=== PATIENT | female | born 1965 | race African-American/Black ===

== ENCOUNTER 2018-11-19 12:59 | Inpatient (IN) | payer MEDICARE, MEDICAID ==
--- NOTE | 2018-11-19 13:15 | ED Physician Chart ---
ED Chief Complaint/HPI - Patient Information Date Seen:: 11/19/18 Time Seen:: 13:00 Chief Complaint:: Agitation History of Present Illness:: onset x 3 days of agitation and hostile behavior; no report of trauma, H/As, neck pain, C/P, cough, SOB, Abd. Pain, SIs, or urinary s/s Allergies:: Allergies Allergy/AdvReac Type Severity Reaction Status Date / Time Penicillins [PCN] Allergy Verified 11/19/18 13:07 Historian:: Patient, EMS Review:: Nurse's Note Reviewed, Old Chart Reviewed, EMS run form Reviewed ED Review of Systems - Review of Systems General/Constitutional: No fever, No chills, No weight loss, No weakness, No diaphoresis, No edema, No loss of appetite Skin: No skin lesions, No rash, No bruising Head: No headache, No light-headedness Eyes: No loss of vision, No pain, No diplopia ENT: No earache, No nasal drainage, No sore throat, No tinnitus Neck: No neck pain, No swelling, No thyromegaly, No stiffness, No mass noted Cardio Vascular: No chest pain, No palpitations, No PND, No orthopnea, No edema Pulmonary: No SOB, No cough, No sputum, No wheezing GI: No nausea, No vomiting, No diarrhea, No pain, No melena, No hematochezia, No constipation, No hematemesis G/U: No dysuria, No frequency, No hematuria, No nacturia Parts Washer: No vaginal discharge, No abnormal vaginal bleed, No contraction Musculoskeletal: No bone or joint pain, No back pain, No muscle pain Endocrine: No polyuria, No polydipsia Psychiatric: No prior psych history, No depression, No anxiety, No suicidal ideation, No homicidal ideation, No auditory hallucination, No visual hallucination Hematopoietic: No bruising, No lymphadenopathy Allergic/Immuno: No urticaria, No angioedema Neurological: No syncope, No focal symptoms, No weakness, No paresthesia, No headache, No seizure, No dizziness, No confusion, No vertigo ED Past Medical History - Past Medical History Obtainable: Yes Past Medical History: HTN, CVA/TIA, PUD/GERD, Dementia, Other (CP) Family History: HTN Social History: Non Smoker, No Alcohol, No Drug Use, Single, Care Facility Surgical History: None Psychiatricy History: Bipolar, Dementia Medication: Reviewed ED Physical Exam - Physical Examination General/Constitutional: Awake, Well-developed, well-nourished, Alert, No distress, GCS 15, Non-toxic appearing, Ambulatory Head: Atraumatic Eyes: Lids, conjuctiva normal, PERRL, EOMI Skin: Nl inspection, No rash, No skin lesions, No ecchymosis, Well hydrated, No lymphadenopathy ENMT: External ears, nose nl, TM canals nl, Nasal exam nl, Lips, teeth, gums nl , Oropharynx nl, Tonsils nl Neck: Nontender, Full ROM w/o pain, No JVD, No nuchal rigidity, No bruit, No mass, No stridor Other Neck comments:: supple; no meningeal signs; no cervical tenderness; no bruits Respiratory: Nl effort/Exclusion, Clear to Auscultation, No Wheeze/Rhonchi/Rales Cardio Vascular: RRR, No murmur, gallop, rubs, NL S1 S2, Carotid/Femoral/Distal pulses equal bilaterally GI: No tenderness/rebounding/guarding, No organomegaly, No hernia, Normal BS's, Nondistended, No mass/bruits, No McBurney tenderness Other GI comments:: no pulsatile masses : No CVA tenderness Extremities: No tenderness or effusion, Full ROM, normal strength in all extremities, No edema, Normal digits & nails Neuro/Psych: Alert/oriented, DTR's symmetric, Normal sensory exam, Normal motor strength, Judgement/insight normal, Mood normal, Normal gait, No focal deficits Other Neuro/Psych comments:: + Psychomotor Agitation; no SIs; Mood/Affect: Labile Misc: Normal back, No paraspinal tenderness ED Labs/Radiology/EKG Results - Lab Results Comments:: Reviewed - EKG Interpretations EKG Time:: 13:28 Rate & Rhythm: 71; NSR Comments:: non-specific st-t changes ED Septic Shock - . Is Septic Shock (SBP<90, OR Lactate>4 mmol\L) present?: No ED Reassessment (Disposition) - Reassessment Reassessment Condition:: Improved - Diagnosis Diagnosis:: Agitation; Medical Clearance; Hypertension; Psychosis; Bipolar Disorder - Aftercare/Follow up Instructions Aftercare/Follow-Up Instructions:: Counseled pt regarding lab results/diagnosis & need follow up, Counseled pt & family regarding lab results/diagnosis & need follow up - Patient Disposition Discharge/Transfer:: Acute Care w/in this hosp Admitted to:: [facility] Condition at Disposition:: Stable, Improved
[2018-11-19 13:54] LABS: ALB/GLOB RATIO 1.5 (1.0-1.8); ALBUMIN 4.1 gm/dL (3.7-5.3); ALKALINE PHOSPHATASE 75 U/L (34-104); ANION GAP 12.3 (7.0-16.0); BILIRUBIN,TOTAL 0.8 mg/dL (0.3-1.0); BUN - UREA NITROGEN 11 mg/dL (7-25); CARBON DIOXIDE 28.3 mEq/L (21.0-31.0); CHLORIDE 105 mEq/L (98-107); CHOLESTEROL 174 mg/dL (<200); CREATININE - SERUM 0.7 mg/dL (0.6-1.2); GFR AFRICAN-AMERICAN > 60.0 ml/min (>90); GFR NON AFRICAN-AMERICAN > 60.0 ml/min; GLUCOSE 132 mg/dL (70-105); HDL -HIGH DENSITY LIPOPROTEIN 39 mg/dL (23-92); POTASSIUM SERUM 3.6 mEq/L (3.5-5.1); SGOT 12 U/L (13-39); SGPT/ALT 13 U/L (7-52); SODIUM SERUM 142 mEq/L (136-145); TOTAL PROTEIN,SERUM 6.8 gm/dL (6.0-8.3); TRIGLYCERIDES 144 mg/dL (<150)
[2018-11-19 13:56] LABS: ACETAMINOPHEN < 10.0 ug/mL (10.0-30.0); SALICYLATES (ASPIRIN) < 25.0 mg/L (30.0-100.0)
[2018-11-19] MEDS ORDERED: NITROGLYCERIN OINT 2% 1 INCH PACKET TP STA (14:10)
[2018-11-19 14:45] LABS: WHITE BLOOD COUNT 5.7 Th/cmm (4.8-10.8)
[2018-11-19 14:46] LABS: % EOSINOPHILS 1.8 % (0.0-5.0); % LYMPHOCYTES 40.8 % (20.0-50.0); % MONOCYTES 7.4 % (2.0-10.0); % NEUTROPHILS 49.2 % (40.0-80.0); HEMATOCRIT 43.7 % (41.0-60); HEMOGLOBIN 14.1 gm/dL (12-16); MEAN CELL VOLUME 85.1 fl (81-100); MEAN CORPUSCULAR HEMOGLOBIN 27.5 pg (27.0-31.0); MEAN CORPUSCULAR HGB CONC 32.3 pg (28.0-36.0); MEAN PLATELET VOLUME 8.4 fl; PLATELET COUNT 318 Th/cmm (150-400); RED BLOOD COUNT 5.13 Mil/cmm (3.80-5.10); RED CELL DISTRIBUTION WIDTH 13.5 % (11.5-20.0)
[2018-11-19 14:47] LABS: % BASOPHILS 0.8 % (0.0-2.0); EOSINOPHILE ABSOLUTE 0.1 Th/cmm (0.1-0.4); LYMPHOCYTE ABSOLUTE 2.3 Th/cmm (1.5-3.0); MONOCYTE ABSOLUTE 0.4 Th/cmm (0.3-1.0); NEUTROPHILE ABSOLUTE 2.8 Th/cmm (1.8-8.0)
[2018-11-19] MEDS ORDERED: NITROGLYCERIN OINT 2% 1 INCH PACKET TP ONE (15:25)
[2018-11-19 17:52] VITALS: BP 164/79
--- NOTE | 2018-11-20 05:10 | Psychiatric Evaluation ---
DATE OF SERVICE: 11/19/2018 IDENTIFYING DATA: The patient is a 53-year-old woman, resident of a Nursing Home Facility in [facility]. Information obtained by directly interviewing the patient as well as reviewing the admission papers. JUSTIFICATION OF HOSPITALIZATION: The patient is admitted here on a voluntary basis in view of her acute agitation and refusing to comply with the treatment. Chart is reviewed. The patient is interviewed. Staff was spoken to. The patient has been uncooperative at this time and is not providing much of information stating that she should not be in here. The patient is reported to have been on the Ativan on an as needed basis and is also on clonidine. The patient is reported to have multiple medical problems. The patient has been refusing care at this time and hence the patient has not be contained at a lower level of care and has been referred over here because of her agitation. PAST PSYCHIATRIC HISTORY: Details are not known. Examination is requested to be done by Dr. Bourgeois. The patient is reported to have hypertension, peptic ulcer disease, gastritis, and the patient has cerebral palsy and paraplegia. SUBSTANCE ABUSE HISTORY: None. LEGAL PROBLEMS: None at this time. MENTAL STATUS EXAMINATION: The patient is a 53-year-old, looking his stated age, superficially cooperative. Eye contact is poor. Mood is noted to be irritable. Affect is constricted. Insight and judgment at this time are very much impaired. Impulse control is limited. The patient is very reluctant to give any information at this time. The patient has been having difficult time to cope with the stress. The patient is not answering the questions. Hence I am not able to test the short and long-term memory issues. The patient, however, has been reluctant to comply with any of the treatments on an outpatient basis. The patient has no insight into her illness. DIAGNOSTIC IMPRESSION: AXIS I: Mood disorder, not otherwise specified. AXIS II: None. AXIS III: As per Dr. Bourgeois. IMMEDIATE TREATMENT PLAN: The patient is going to be observed on inpatient unit, provided with supportive psychotherapy. The patient is going to be started on a low dose of Depakote and continue with the Ativan. Once stabilized, the patient is going to be discharged to the Nursing Home Facility for followup. JOB# [id number]
--- NOTE | 2018-11-20 07:28 | History & Physical ---
ADMIT DATE: 11/19/2018 INTERNAL MEDICINE CONSULTATION The patient is a 53-year-old female, patient of mine at [facility]. PAST MEDICAL HISTORY: Significant for hypertension, cerebral palsy, paraplegia, coronary artery disease, peptic ulcer disease, arthritis, osteoporosis. SOCIAL HISTORY: No documented smoking or alcohol abuse. OBSTETRIC HISTORY: P0, plus 0. Menses are postmenopausal. REVIEW OF SYSTEMS: No evidence of any acute infection. PHYSICAL EXAMINATION: Average female, in no obvious respiratory distress. LABORATORY DATA: WBC of 5.7, hemoglobin of 14.1, hematocrit 43.7, platelet count of 318. Sodium 142, potassium 3.6, chloride 105, bicarbonate 28.3, BUN 11, creatinine 0.7, glucose of 132. LFTs unremarkable. MEDICAL DIAGNOSES: As I dictated above cerebral palsy, paraplegia, hypertension, coronary artery disease, peptic ulcer disease, arthritis, osteoporosis. CURRENT MEDICINES: Include clonidine p.r.n., ibuprofen p.r.n. and nitroglycerin p.r.n. JOB# [id number]
[2018-11-20] MEDS ORDERED: OLANZapine 5 mg Oral Disintegrating Tab PO SCH (21:00)
--- NOTE | 2018-11-21 03:21 | Progress Notes ---
DATE: 11/20/2018 SUBJECTIVE: The patient is 53-year-old female with current medical problems that include status post cerebral palsy, paraplegia, hypertension, coronary artery disease, peptic ulcer disease, arthritis. Blood pressure has been unstable. The patient refusing medicines. The patient started on losartan and clonidine p.r.n. PHYSICAL EXAMINATION: LUNGS: Clear. HEART: First and second heart sounds normal. ABDOMEN: Soft, bowel sounds present. EXTREMITIES: Show arthritis. NEUROLOGIC: The patient has cerebral palsy and paraplegia. Psych consult reviewed. PLAN: Continue current medical management. JOB# [id number]
--- NOTE | 2018-11-21 09:15 | Consultation ---
DATE OF CONSULTATION: 11/20/2018 REFERRING PHYSICIAN: Yessy Giordano M.D. TYPE OF CONSULTATION: Psychology. HISTORY OF PRESENT ILLNESS: The patient is a 53-year-old -[place] female. The patient is a resident of [facility]. The following is by record review and by the patient's self-report. The patient is being admitted due to acute agitation as well as refusing to comply with treatment including medications. The patient presents as uncooperative and stating that she does not need to be in the hospital. The staff at her facility reports that the patient has been refusing care and has become easily agitated with staff as well as other residents. The patient did not answer the question about experiencing suicidal ideation, plan or intention. PAST MEDICAL HISTORY: Please see history and physical by Dr. Bourgeois. PAST PSYCHIATRIC HISTORY: Records are unavailable. Details are unknown. The patient is under the care of a psychiatrist at her placement. SUBSTANCE ABUSE HISTORY: The patient declined to answer these questions. PSYCHOSOCIAL HISTORY: The patient did not answer questions about occupational or educational history. The patient states no specific yarsani affiliation. She states she is single with no children and has been disabled for many years. The patient states her cyanide case hardener in [place] is Roxy Chairez and that she has a guardian, named Edith Almendarez; this is verified by record review. The patient did not answer questions about history of physical or sexual abuse. The patient denies any current legal problems. MENTAL STATUS EXAMINATION: The patient appears to be her stated age. Attitude is superficially cooperative. Eye contact is poor. Speech is loud. Mood is irritable. Affect is constricted. The patient is not providing much information. The patient did not answer questions about experiencing suicidal ideation, plan or intention. She did not answer the questions about experiencing auditory or visual hallucinations or delusions. The patient's behavior has been difficult to redirect according to the staff on the unit. Impulse control is inadequate. Concentration is poor. The patient did not answer questions about reasons for becoming reluctant to comply with her treatment. The patient has limited insight into her illness. The patient did not participate in the memory assessment. She did not participate in the interpretation of proverbs. Sensorium is alert and oriented to self and place. Insight is poor. Judgment is compromised. DIAGNOSTIC IMPRESSION: AXIS I: Provisional diagnosis of mood disorder, not otherwise specified. AXIS II: Deferred. AXIS III: Per Dr. Bourgeois. TREATMENT PLAN: The patient has been seen by Dr. Giordano for psychiatric evaluation and for the management of the patient's psychotropic medications. We will provide supportive psychotherapy to include motivational enhancement for the patient to become compliant and stay compliant with all aspects of her care and treatment. We will continue to evaluate the patient more closely to ascertain the type of mood disorder or mood instability that the patient is experiencing. There is possible anxiety involved. We will provide coping strategies for phase of life issues as well as for the appropriate behavior and interaction with staff at her placement. We will encourage the patient to verbalize her concerns so that we may be able to provide a thorough and comprehensive set of treatment goals. Thank you, Dr. Giordano, for this consult and the opportunity to participate in this patient's care. JOB# [id number] TELLO
--- NOTE | 2018-11-21 14:52 | Progress Notes ---
DATE: 11/20/2018 SUBJECTIVE: The patient was seen, remains paranoid, anxious, still delusional, still suspicious. The patient states she is that is why she is not taking her medications. ASSESSMENT: The patient still in psychotic phase. PLAN: Continue supportive measures. Encourage the patient to comply with treatment. The patient is conserved, awaiting detain and treat orders. JOB# [id number]
[2018-11-21] MEDS: OLANZapine 5 mg Oral Disintegrating Tab PO SCH (22:00)
--- NOTE | 2018-11-21 23:08 | Progress Notes ---
DATE: 11/21/2018 INTERNAL MEDICINE CONSULTATION FOLLOWUP SUBJECTIVE: The patient is a 53-year-old female with cerebral palsy and paraplegia. Other medical problems include hypertension, coronary artery disease, peptic ulcer disease, arthritis. No new symptoms. No seizure. No acute infection. OBJECTIVE: VITAL SIGNS: Stable. LUNGS: Clear. HEART: First and second heart sounds normal. ABDOMEN: Soft. Bowel sounds present. EXTREMITIES: Show arthritis. NEUROLOGIC: The patient has cerebral palsy and paraplegia. PLAN: Psych consult was reviewed. Continue current medical management. JOB# [id number]
--- NOTE | 2018-11-22 00:01 | Progress Notes ---
DATE: 11/21/2018 SUBJECTIVE: The patient was seen, remains paranoid, irritable, still delusional, saying she is that is why she does not take medications. Insight is poor. Judgment impaired. Memory and calculation fund of knowledge remains impaired. ASSESSMENT: The patient is still in psychotic phase. PLAN: Continue stabilization. Continue supportive measures. Continue Zyprexa 5 mg p.o. at bedtime. If the patient refuses, give IM. Usp and treat from conservator is in chart. JOB# [id number]
[2018-11-22] MEDS ORDERED: cloNIDine 0.3 mg/24 hr Tdm TD SCH (09:00)
[2018-11-22] MEDS: OLANZapine 5 mg Oral Disintegrating Tab PO SCH (21:44)
--- NOTE | 2018-11-23 02:42 | Progress Notes ---
DATE: 11/22/2018 INTERNAL MEDICINE CONSULTATION FOLLOWUP SUBJECTIVE: She is a patient of mine seen at [facility]. Current medical problems include congenital cerebral palsy, paraplegia, COPD, coronary artery disease, peptic ulcer disease, gastritis, arthritis and osteoporosis. No new symptoms. OBJECTIVE: VITAL SIGNS: Stable. LUNGS: Clear. HEART: First and second heart sound normal. ABDOMEN: Soft. Bowel sounds present. EXTREMITIES: Show arthritis. NEUROLOGIC: The patient has paraplegia with cerebral palsy. ASSESSMENT AND PLAN: Psych consult reviewed. Continue current medical management. JOB# [id number]
--- NOTE | 2018-11-23 03:18 | Progress Notes ---
DATE: 11/22/2018 SUBJECTIVE: The patient was seen, remains paranoid, delusional, thinking that she is . Still some anger outbursts. The patient's insight is poor. Judgment impaired. ASSESSMENT: The patient is still in psychotic phase and has been refusing medications at times. The patient, however, is conserved. We will use Haldol Decanoate 25 mg IM q.4 weeks to help improve compliance. Continue rest of the medication. Encouraged the patient to comply with treatment. JOB# [id number]
[2018-11-23] MEDS: OLANZapine 5 mg Oral Disintegrating Tab PO SCH (21:00)
--- NOTE | 2018-11-23 23:04 | Progress Notes ---
DATE: 11/23/2018 SUBJECTIVE: The patient was resting in bed with eyes closed. She responded to verbal stimuli. The patient reported that she wants to go home out of state. The patient reported that she has a personal train waiting outside the window. The patient reported that she does not take medication because she is with 49 boys and 49 girls in her abdomen. The patient reported that she does not eat well because she only wants to eat home cooking. The patient also reported that she does not sleep well; however, she is not able to say what the reason why she has problem sleeping. OBJECTIVE: The patient appeared to be quite delusional. The staff reported that the patient has been refusing to take medication and Dr. Doshi had ordered Haldol Decanoate for her yesterday. ASSESSMENT: Schizophrenia, chronic paranoid type, in acute exacerbation. PLAN: We will continue the patient on medications that has been ordered by Dr. Doshi. JOB# [id number]
--- NOTE | 2018-11-24 00:47 | Consultation ---
DATE OF CONSULTATION: 11/23/2018 INTERNAL MEDICINE CONSULTATION SUBJECTIVE: The patient is a 53-year-old female patient of mine. Current medical problems include cerebral palsy, paraplegia, hypertension, coronary artery disease, peptic ulcer disease, gastritis, arthritis. No new symptoms. PHYSICAL EXAMINATION: VITAL SIGNS: Stable. LUNGS: Clear. HEART: First and second heart sounds normal ABDOMEN: Soft. Bowel sounds present. EXTREMITIES: Show arthritis. NEUROLOGIC: The patient has paraplegia. PLAN: Psych consult reviewed. Continue current medical management and other medical followup. [facility]# [id number]
--- NOTE | 2018-11-24 01:06 | Progress Notes ---
DATE: 11/22/2018 PSYCHOLOGY PROGRESS NOTE SUBJECTIVE: The patient is seen and is interviewed. Case is discussed with staff. Staff report, the patient continues to have intermittent anger outbursts. The patient is verbalizing delusional thought, i.e. she continues to state that she is and does not want to take medications for that reason. The patient is somewhat dismissive and guarded. OBJECTIVE: Mood is irritable. Affect is constricted. Thought process includes delusional thought as well as paranoid ideation. The patient denied any suicidal ideation, plan, or intention. The patient's behavior is difficult to redirect with intermittent anger outbursts. ASSESSMENT AND PLAN: The patient's psychosis persists. The patient intermittently refuses medication. The patient is conserved. We provided de-escalation and limit setting. We provided reality orientation, differentiation, and integration. We provided remotivation for the patient to become compliant with all aspects of her care and treatment and specifically her medication regimen. We provided coping strategies for phase of life issues. We provided a simple anger management skill along with de-escalation and limit setting. We provided coping strategies for phase of life issues as well as for chronic severe mental illness. We will follow up in 2 days to continue the present treatment if the patient remains admitted on the unit. [facility]# [id number] TELLO
[2018-11-24] MEDS: OLANZapine 5 mg Oral Disintegrating Tab PO SCH (20:23)
--- NOTE | 2018-11-24 22:37 | Progress Notes ---
DATE: 11/24/2018 SUBJECTIVE: The patient was sleeping in bed when approached. The patient responded to physical and verbal stimuli. The patient stated that she slept okay. The patient stated she has not had any breakfast. The patient reported that she needs to get out of here. When I asked if she took her medications, the patient stated that she does not take any medication because that will affect the babies that she has in the abdomen. The patient continued to report that her private train is waiting outside and it has been too many days that she needs to get on board and leave the facility. OBJECTIVE: The patient continued to be very delusional. The patient continued to be uncooperative with medication. Staff reported that the patient continued to refuse to take her medication because of her delusions that the medications will affect her fetuses. The patient has been eating and sleeping okay. The patient has not gotten out of bed since admission. ASSESSMENT: The patient continues to be very delusional and noncompliant with medication well. PLAN: We will increase the patient's Depakene to 250 mg q.12 hours for agitation and aggression, poor impulse control. We will give the patient 10 mg IM of Zyprexa when the patient refuse to take her Zyprexa 5 mg at bedtime. JOB# [id number] TELLO
--- NOTE | 2018-11-24 23:41 | Progress Notes ---
DATE: 11/24/2018 INTERNAL MEDICINE CONSULTATION FOLLOWUP SUBJECTIVE: The patient is a 53-year-old lady with cerebral palsy and paraplegia. Other medical problems are hypertension, COPD, coronary artery disease, peptic ulcer disease, arthritis. No new symptoms. OBJECTIVE: VITAL SIGNS: Stable. LUNGS: Clear. HEART: Frist and second heart sounds normal. ABDOMEN: Soft. EXTREMITIES: Show arthritis. NEUROLOGIC: The patient has paraplegia and cerebral palsy. Psych consult reviewed. Continue current medical management. JOB# [id number]
[2018-11-25] MEDS: OLANZapine 5 mg Oral Disintegrating Tab PO SCH (21:58)
--- NOTE | 2018-11-25 22:21 | Progress Notes ---
DATE: 11/25/2018 INTERNAL MEDICINE CONSULTATION FOLLOWUP SUBJECTIVE: The patient is a 53-year-old female seen at [facility]. CURRENT MEDICAL PROBLEMS: Include hypertension, cerebral palsy and paraplegia, coronary artery disease, peptic ulcer disease, gastritis, arthritis. As per nurse, the patient is very noncompliant, refused to take her blood pressure medicine off and on, blood pressure therefore has been labile. OBJECTIVE: VITAL SIGNS: Currently, blood pressure 140/78, heart rate of 88. SKIN: Shows cellulitis. HEENT: Normal conjunctivae. NECK: Supple. LUNGS: Clear. HEART EXAM: First and second sounds are normal. ABDOMEN: Soft. EXTREMITIES: Show arthritis. NEUROLOGIC: The patient has paraplegia, cerebral palsy. Psych consult reviewed. The patient is a difficult patient due to noncompliance. Continue current medical management. JOB# [id number]
--- NOTE | 2018-11-26 03:19 | Progress Notes ---
DATE: 11/25/2018 PSYCHIATRIC PROGRESS NOTE SUBJECTIVE: Staff was spoken to. The patient is interviewed. Mood is noted to be less irritable. The patient's insight and judgment are noted to be improving. Impulse control is noted to be fair. The patient has been able to tolerate the olanzapine and Haldol that is being given once a month. The patient is also on valproic acid and impulsivity seems to be coming under control. No side effects to the medications are noted. ASSESSMENT: The patient is still having difficult time to cope with the stress. PLAN: To continue the patient with current medications. I encouraged the patient to verbalize the concerns rather than to act out. JOB# [id number]
--- NOTE | 2018-11-26 19:26 | Progress Notes ---
DATE: 11/26/2018 INTERNAL MEDICINE FOLLOWUP SUBJECTIVE: The patient is 53-year-old female. Current medical problems include cerebral palsy, paraplegia, hypertension, coronary artery disease, peptic ulcer disease, gastritis, arthritis, noncompliant with treatment. OBJECTIVE: VITAL SIGNS: Blood pressure has been fluctuating. LUNGS: Clear. HEART: First and second heart sounds normal. ABDOMEN: Soft. Bowel sounds present. EXTREMITIES: Show arthritis. NEUROLOGIC: The patient has cerebral palsy and paraplegia. PLAN: Psych consult reviewed. Continue current medical management. JOB# [id number]
--- NOTE | 2018-11-26 21:51 | Progress Notes ---
DATE: 11/25/2018 DATE OF SERVICE: 11/25/2018 PSYCHOLOGY PROGRESS NOTE SUBJECTIVE: The patient is seen and is interviewed. Case is discussed with staff. The patient is speaking loudly to this screen writer and demanding to be discharged. The patient is asking where her psychiatrist is and does not understand why she continues to be hospitalized. The staff reports the patient's impulsivity seems to be coming under control. The patient has been compliant with her medications thus far. OBJECTIVE: Mood is less irritable. Affect is constricted. Thought process shows perseveration on discharge as well as her medical condition. The patient is somewhat confused about her hospitalization here. She demonstrates poor insight into her illness. ASSESSMENT AND PLAN: The patient is continuing to have difficulty coping. We provided supportive psychotherapy, which included reality integration as well as positive reinforcement for the patient to stay compliant with her care and treatment. We encouraged the patient to demonstrate emotional and self-regulation and to verbalize her concerns versus acting out. We provided coping strategies for phase of life issues. We will follow up in 2 days to continue the present treatment if the patient remains admitted on the unit. The staff indicates the patient may discharge today. JOB# [id number] TELLO
--- NOTE | 2018-11-27 05:07 | Progress Notes ---
DATE: 11/26/2018 SUBJECTIVE: Staff was spoken to. The patient is interviewed. Mood is noted to be anxious. Affect is appropriate. The patient's insight and judgment are noted to be improving. Impulse control seems to be fair. The patient has paranoia, but denies any command hallucinations. No side effects of the Depakote or olanzapine have been noted and the patient is not presenting as a threat to self or others. ASSESSMENT: The patient is stabilizing. PLAN: To [facility] the patient to the [facility] facility for further followup. JOB# [id number]
== END 2018-11-26 15:00 | DRG 885 ==
LOC: ER 12:59 → GERO2 17:20
DX: F20.0 Paranoid schizophrenia (principal); G82.20 Paraplegia, unspecified; I10 Essential (primary) hypertension; K21.9 Gastro-esophageal reflux disease without esophagitis; F03.90 Unspecified dementia, unspecified severity, without behavioral disturbance, psychotic disturbance, mood disturbance, and anxiety; F31.9 Bipolar disorder, unspecified; F29 Unspecified psychosis not due to a substance or known physiological condition; F39 Unspecified mood [affective] disorder; I25.10 Atherosclerotic heart disease of native coronary artery without angina pectoris; K27.9 Peptic ulcer, site unspecified, unspecified as acute or chronic, without hemorrhage or perforation; M19.90 Unspecified osteoarthritis, unspecified site; Z88.0 Allergy status to penicillin; Z86.73 Personal history of transient ischemic attack (TIA), and cerebral infarction without residual deficits
CPT/HCPCS: 36415-UA; 80053-TC; 80061-TC; 80320-TC; 80329-TC; 83036-90; 84443-TC; 84484-TC; 84703-TC; 85025-TC; 86592-TC; 93005; Z7610